=== PATIENT | female | born 1965 | race Two or more races ===

== ENCOUNTER 2017-08-20 10:26 | Outpatient (CLI) | payer OTHER ==
[~2017-08-20 10:26] MED LIST: ATARAX25 MG PO; MEDROLPACK PO; ZYRTEC10 M3; ZYRTEC10 M3 PO
== END 2017-08-20 11:20 | disposition home or self-care (01) ==
LOC: RAD 10:26
DX: M75.51 Bursitis of right shoulder (principal)

== ENCOUNTER 2017-10-10 09:57 | Outpatient (CLI) | payer OTHER | END 2017-10-10 10:13 | disposition home or self-care (01) | LOC: MAMO-SONO 09:57 | DX: Z12.31 Encounter for screening mammogram for malignant neoplasm of breast (principal); Z78.9 Other specified health status; N60.11 Diffuse cystic mastopathy of right breast; N60.12 Diffuse cystic mastopathy of left breast; N64.4 Mastodynia; R92.2 Inconclusive mammogram; E04.1 Nontoxic single thyroid nodule ==

== ENCOUNTER 2022-05-24 07:33 | Outpatient (CLI) | payer OTHER | END 2022-05-24 07:40 | disposition home or self-care (01) | LOC: SONOGRAMA 07:33 | PROVIDERS: ATTEND Internal Medicine Gastroenterology | DX: R16.2 Hepatomegaly with splenomegaly, not elsewhere classified (principal) ==

== ENCOUNTER 2024-09-20 07:04 | Emergency (ER) | payer OTHER ==
[~2024-09-20] VITALS: Ht 160 cm; Wt 63.5 kg
[2024-09-20] MEDS ORDERED: LIDOCAINE HCL 1% 10ML VIAL ONE (09:17)
[2024-09-20] MEDS ORDERED: CEFTRIAXONE SODIUM 1,000 MG VIAL ONE (09:17)
[2024-09-20] MEDS ORDERED: DIPHTH,PERTUSS(ACELL),TET VAC 0.5 ML SYRINGE IM ONE ×2 (09:18→09:30)
[2024-09-20] MEDS ORDERED: CEFTRIAXONE SODIUM 1,000 MG VIAL IM ONE (09:30)
== END 2024-09-20 10:19 | disposition home or self-care (01) ==
LOC: ER 07:04
DX: S91.332A Puncture wound without foreign body, left foot, initial encounter (principal); X58.XXXA Exposure to other specified factors, initial encounter; Y93.89 Activity, other specified; Y92.832 Beach as the place of occurrence of the external cause; Y99.9 Unspecified external cause status